=== PATIENT | female | born 1965 | race Caucasian/White ===

== ENCOUNTER → 2021-05-08 13:34 | Outpatient (CLI) | payer BC, SELFPAY ==
[2021-05-08 13:40] LABS: Basophils # 0.1 K/mm3 (0-0.2); Basophils % 1.7 % (0.1-2.0); Eosinophils # 0.2 K/mm3 (0.0-0.4); Eosinophils % 2.8 % (0.1-12.0); Hematocrit 43.3 % (37.0-47.0); Hemoglobin 13.9 g/dL (12.2-16.2); Lymphocytes % 12.2 % (10-50); Mean Corpuscular HGB Conc 32.2 g/dL (31.8-35.4); Mean Corpuscular Hemoglobin 29.8 pg (27.0-31.2); Mean Corpuscular Volume 92.5 fl (81-99); Mean Platelet Volume 9.1 fl (7.4-10.4); Monocytes # 0.5 K/mm3 (0.1-1.0); Monocytes % 5.4 % (1.7-9.3); Neutrophils # 6.6 K/mm3 (1.8-7.8); Neutrophils % 77.9 % (37.0-80.0); Platelet Count 457 K/mm3 (142-424); Red Blood Count 4.68 M/mm3 (4.20-5.40); Red Cell Distribution Width 14.9 % (11.5-17.5); White Blood Count 8.5 K/mm3 (4.8-10.8)
[2021-05-08 14:41] LABS: Alanine Aminotransferase 26 U/L (12-78); Albumin Level 3.7 g/dl (3.5-5.0); Alkaline Phosphatase 119 U/L (38-126); Anion Gap 8.7 mEq/L (5-15); Aspartate Amino Transferase 33 U/L (14-36); Bilirubin,Total 0.3 mg/dl (0.2-1.3); Blood Urea Nitrogen 24 mg/dl (7-17); Calcium 9.1 mg/dl (8.4-10.2); Carbon Dioxide 31 mmol/L (22.0-30.0); Chloride 103 mmol/L (98-107); Chol/HDL Ratio 4.4 (1-3.5); Cholesterol 206 mg/dl (140-200); Estimated Glomerular Filt Rate 75 ml/min (>60); GFR (African American) 90 ML/MIN (>60); Globulin 3.7 g/dL (1.3-3.2); Glucose 107 mg/dl (74-100); HDL Cholesterol 47 mg/dl (40-60); Potassium 4.7 mmoL/L (3.5-5.1); Sodium 138 mmol/L (136-145); Total Protein,Serum 7.4 g/dl (6.3-8.2); Triglycerides 125 mg/dl (30-150); VLDL Cholesterol 25 mg/dL (0-40)
[2021-05-08 14:52] LABS: Direct LDL Cholesterol 131.55 mg/dL (100-129)
[2021-05-08 14:59] LABS: T4 (Thyroxine) 5.8 ug/dl (5.53-11.0)
== END ==
PROVIDERS: Visit Provider Family Medicine
DX: E03.9 Hypothyroidism, unspecified (principal)
CPT/HCPCS: 80053; 80061; 84436; 84443; 85025

== ENCOUNTER → 2022-10-16 14:39 | Outpatient (CLI) | payer BC, SELFPAY ==
[2022-10-16 13:39] LABS: Basophils # 0.1 K/mm3 (0-0.2); Basophils % 0.8 % (0.1-2.0); Eosinophils # 0.3 K/mm3 (0.0-0.4); Eosinophils % 3.2 % (0.1-12.0); Hematocrit 41.7 % (37.0-47.0); Hemoglobin 14.1 g/dL (12.2-16.2); Lymphocytes # 1.3 K/mm3 (0.7-4.5); Lymphocytes % 14.5 % (10-50); Mean Corpuscular HGB Conc 33.8 g/dL (31.8-35.4); Mean Corpuscular Volume 85.8 fl (81-99); Mean Platelet Volume 8.7 fl (7.4-10.4); Monocytes # 0.6 K/mm3 (0.1-1.0); Monocytes % 6.4 % (1.7-9.3); Neutrophils # 6.6 K/mm3 (1.8-7.8); Neutrophils % 75.2 % (37.0-80.0); Platelet Count 488 K/mm3 (142-424); Red Blood Count 4.86 M/mm3 (4.20-5.40); Red Cell Distribution Width 13.9 % (11.5-17.5); White Blood Count 8.7 K/mm3 (4.8-10.8)
[2022-10-16 13:46] LABS: Alanine Aminotransferase 25 U/L (12-78); Albumin Level 3.6 g/dl (3.5-5.0); Albumin/Globulin Ratio 1.1 (1.1-1.8); Alkaline Phosphatase 139 U/L (38-126); Anion Gap 12.4 mEq/L (5-15); Aspartate Amino Transferase 27 U/L (14-36); Bilirubin,Total 0.5 mg/dl (0.2-1.3); Blood Urea Nitrogen 22 mg/dl (7-17); Calcium 8.7 mg/dl (8.4-10.2); Carbon Dioxide 29 mmol/L (22.0-30.0); Chloride 98 mmol/L (98-107); Chol/HDL Ratio 4.5 (1-3.5); Cholesterol 184 mg/dl (140-200); Estimated Glomerular Filt Rate 58 ml/min (>60); GFR (African American) 70 ML/MIN (>60); Globulin 3.4 g/dL (1.3-3.2); Glucose 101 mg/dl (74-100); HDL Cholesterol 41 mg/dl (40-60); Potassium 4.4 mmoL/L (3.5-5.1); Sodium 135 mmol/L (136-145); Triglycerides 123 mg/dl (30-150); VLDL Cholesterol 25 mg/dL (0-40)
[2022-10-16 13:57] LABS: Direct LDL Cholesterol 123.09 mg/dL (100-129)
[2022-10-16 14:17] LABS: Thyroid Stimulating Hormone 0.51 uIU/mL (0.465-4.68)
== END ==
PROVIDERS: PCP Family Medicine; Visit Provider Family Medicine
DX: E03.9 Hypothyroidism, unspecified (principal); I10 Essential (primary) hypertension; E66.01 Morbid (severe) obesity due to excess calories; Z68.43 Body mass index [BMI] 50.0-59.9, adult
CPT/HCPCS: 80053; 80061; 84443; 85025

== ENCOUNTER → 2022-12-02 12:54 | Outpatient (CLI) | payer BC, SELFPAY | PROVIDERS: PCP Family Medicine; Visit Provider Family Medicine | DX: G47.33 Obstructive sleep apnea (adult) (pediatric) (principal); R06.83 Snoring | CPT/HCPCS: G0399 ==

== ENCOUNTER → 2023-04-02 23:23 | Outpatient (CLI) | payer BC, SELFPAY ==
[2023-04-02 19:25] LABS: Basophils # 0.1 K/mm3 (0-0.2); Basophils % 0.7 % (0.1-2.0); Eosinophils # 0.1 K/mm3 (0.0-0.4); Hematocrit 43.3 % (37.0-47.0); Hemoglobin 13.7 g/dL (12.2-16.2); Lymphocytes # 2.4 K/mm3 (0.7-4.5); Lymphocytes % 21.8 % (10-50); Mean Corpuscular HGB Conc 31.7 g/dL (31.8-35.4); Mean Corpuscular Hemoglobin 27.2 pg (27.0-31.2); Mean Corpuscular Volume 85.7 fl (81-99); Mean Platelet Volume 9.1 fl (7.4-10.4); Monocytes # 0.7 K/mm3 (0.1-1.0); Monocytes % 6.5 % (1.7-9.3); Neutrophils # 7.8 K/mm3 (1.8-7.8); Platelet Count 441 K/mm3 (142-424); Red Blood Count 5.05 M/mm3 (4.20-5.40); Red Cell Distribution Width 13.6 % (11.5-17.5); White Blood Count 11.1 K/mm3 (4.8-10.8)
[2023-04-02 19:36] LABS: Alanine Aminotransferase 24 U/L (12-78); Albumin Level 3.7 g/dl (3.5-5.0); Alkaline Phosphatase 127 U/L (38-126); Anion Gap 13.6 mEq/L (5-15); Aspartate Amino Transferase 26 U/L (14-36); Bilirubin,Total 0.3 mg/dl (0.2-1.3); Blood Urea Nitrogen 33 mg/dl (7-17); Carbon Dioxide 30 mmol/L (22.0-30.0); Chloride 101 mmol/L (98-107); Chol/HDL Ratio 4.8 (1-3.5); Cholesterol 192 mg/dl (140-200); Estimated Glomerular Filt Rate 65 ml/min (>60); GFR (African American) 78 ML/MIN (>60); Globulin 3.6 g/dL (1.3-3.2); Glucose 93 mg/dl (74-100); HDL Cholesterol 40 mg/dl (40-60); Potassium 3.6 mmoL/L (3.5-5.1); Sodium 141 mmol/L (136-145); Total Protein,Serum 7.3 g/dl (6.3-8.2); Triglycerides 113 mg/dl (30-150); VLDL Cholesterol 23 mg/dL (0-40)
[2023-04-02 20:06] LABS: Thyroid Stimulating Hormone 0.02 uIU/mL (0.465-4.68)
[2023-04-02 20:33] LABS: Hemoglobin A1C 5.5 % (4.0-6.0)
== END ==
PROVIDERS: PCP Family Medicine; Visit Provider Family Medicine
DX: I10 Essential (primary) hypertension (principal); E66.9 Obesity, unspecified; Z68.42 Body mass index [BMI] 45.0-49.9, adult; E03.9 Hypothyroidism, unspecified; F32.A Depression, unspecified
CPT/HCPCS: 80053; 80061; 83036; 84443; 85025

== ENCOUNTER → 2023-05-20 11:43 | Outpatient (CLI) | payer BC, SELFPAY ==
[2023-05-20 19:53] LABS: Thyroid Stimulating Hormone 0.38 uIU/mL (0.465-4.68)
[2023-05-20 20:28] LABS: Free T4 (Free Thyroxine) 1.97 ng/dl (0.78-2.19)
== END ==
PROVIDERS: PCP Family Medicine; Visit Provider Family Medicine
DX: E03.9 Hypothyroidism, unspecified (principal)
CPT/HCPCS: 84439; 84443

== ENCOUNTER → 2023-07-01 11:30 | Outpatient (CLI) | payer BC, SELFPAY ==
--- NOTE | 2023-07-01 12:14 | XR_ITS ---
FINAL REPORT TECHNIQUE: Chest PA & Lateral CLINICAL HISTORY: OBESITY,HTN COMPARISON: None FINDINGS: 2 views of the chest were performed. The heart size is normal. The mediastinum is within normal limits. There is no acute cardiopulmonary process. There are no pleural effusions. There is no pneumothorax. The bony thorax appears intact. IMPRESSION: No acute cardiopulmonary process. Reviewed, Interpreted and Dictated by Gabriele Mora MD Transcribed by Justine Cespedes Authenticated and . [facility]
[2023-07-01 12:28] LABS: Basophils # 0.1 K/mm3 (0-0.2); Basophils % 0.7 % (0.1-2.0); Eosinophils # 0.2 K/mm3 (0.0-0.4); Eosinophils % 2.6 % (0.1-12.0); Hemoglobin 13.8 g/dL (12.2-16.2); Lymphocytes # 1.6 K/mm3 (0.7-4.5); Lymphocytes % 19.7 % (10-50); Mean Corpuscular HGB Conc 33.5 g/dL (31.8-35.4); Mean Corpuscular Hemoglobin 28.6 pg (27.0-31.2); Mean Corpuscular Volume 85.3 fl (81-99); Mean Platelet Volume 7.4 fl (7.4-10.4); Monocytes # 0.4 K/mm3 (0.1-1.0); Monocytes % 5.5 % (1.7-9.3); Neutrophils # 5.7 K/mm3 (1.8-7.8); Neutrophils % 71.4 % (37.0-80.0); Platelet Count 367 K/mm3 (142-424); Red Blood Count 4.81 M/mm3 (4.20-5.40); Red Cell Distribution Width 14.3 % (11.5-17.5)
[2023-07-01 12:52] LABS: Alanine Aminotransferase 21 U/L (12-78); Albumin Level 3.8 g/dl (3.5-5.0); Alkaline Phosphatase 124 U/L (38-126); Anion Gap 11.1 mEq/L (5-15); Aspartate Amino Transferase 27 U/L (14-36); Bilirubin,Total 0.6 mg/dl (0.2-1.3); Blood Urea Nitrogen 21 mg/dl (7-17); Carbon Dioxide 28 mmol/L (22.0-30.0); Chloride 101 mmol/L (98-107); Chol/HDL Ratio 4.3 (1-3.5); Cholesterol 205 mg/dl (140-200); Estimated Glomerular Filt Rate 87 ml/min (>60); GFR (African American) 105 ML/MIN (>60); Globulin 3.7 g/dL (1.3-3.2); Glucose 94 mg/dl (74-100); HDL Cholesterol 48 mg/dl (40-60); Potassium 4.1 mmoL/L (3.5-5.1); Sodium 136 mmol/L (136-145); Total Protein,Serum 7.5 g/dl (6.3-8.2); Triglycerides 90 mg/dl (30-150); VLDL Cholesterol 18 mg/dL (0-40)
[2023-07-01 13:03] LABS: Direct LDL Cholesterol 123.11 mg/dL (100-129)
[2023-07-01 13:04] LABS: Intact Parathyroid Hormone 50.6 pg/mL (7.5-53.5)
[2023-07-01 13:08] LABS: Free T4 (Free Thyroxine) 1.79 ng/dl (0.78-2.19)
[2023-07-01 13:09] LABS: 25-OH Vitamin D, Total 15.4 ng/mL (30-100)
[2023-07-01 13:23] LABS: Thyroid Stimulating Hormone 0.67 uIU/mL (0.465-4.68)
[2023-07-01 13:52] LABS: Hemoglobin A1C 5.3 % (4.0-6.0)
[2023-07-01 14:03] LABS: Folate 5.11 ng/mL
[2023-07-01 14:21] LABS: Iron 60 ug/dL (37-170)
[2023-07-01 14:37] LABS: Total Iron Binding Capacity 306 ug/dL (265-497)
[2023-07-01 15:00] LABS: Ferritin 47.9 ng/ml (11.1-264)
[2023-07-05 13:10] LABS: Vitamin B1 81.5 nmol/L (66.5-200.0)
[2023-07-07 01:08] LABS: Vitamin E Alpha Tocopherol 11.5 mg/L (7.0-25.1); Vitamin E Gamma Tocopherol 2.8 mg/L (0.5-5.5)
[2023-07-07 02:09] LABS: Vitamin A 27.4 ug/dL (20.1-62.0)
[2023-07-07 20:49] LABS: Methylmalonic Acid 194 nmol/L (0-378)
== END ==
LOC: LAB 11:33
PROVIDERS: PCP Family Medicine; Visit Provider Physician Assistant
DX: E66.9 Obesity, unspecified (principal); Z68.42 Body mass index [BMI] 45.0-49.9, adult; E55.9 Vitamin D deficiency, unspecified; Z79.899 Other long term (current) drug therapy
CPT/HCPCS: 36415; 71046; 80053; 80061; 82306; 82728; 82746; 83036; 83540; 83550; 83921; 83970; 84425; 84439; 84443; 84446; 84590; 85025

== ENCOUNTER 2023-07-29 07:01 | Outpatient (CLI) | payer BC, SELFPAY ==
[2023-07-29] VITALS (7 sets, daily range): BP systolic 120–170; BP diastolic 68–97; PULSE 54–68; RESP 16–18; TEMP 36.1; O2SAT 92–97; BMI 48.2
--- NOTE | 2023-07-29 07:08 | CT_ITS ---
APPROVED REPORT Wastewater Technician: CLINICAL INDICATION Chest Pain TECHNIQUE Image Acquisition: A 128 slice MDCT scanner (Limeadea View) was used for data acquisition. A noncontrast coronary calcium scan was performed. A CT attenuation threshold of 130 Hounsfield units (HU) was used for the detection of calcium in contiguous voxels of 1 sq mm in area to be counted as individual lesions. Bolus tracking in the ascending aorta with a threshold of 180 HU was performed. Immediately afterwards, ECG synchronized cardiac CT was then performed from the cardiac base to apex using retrospective gating with ECG tube current modulation. A total of 85 mL of Isovue 370 mg/mL contrast medium was administered at 5 mL/sec followed by a saline flush using a biphasic injection protocol. A tube voltage of 120 KVp was used. The patient received the following medications prior to the cardiac CT. 25 mg of oral metoprolol 0.8 mg of sublingual nitroglycerin The average heart rate at the time of acquisition was 58 bpm and regular. Image Reconstruction Transaxial images were reconstructed at 0.67 mm slide thickness. Data was reviewed interactively on an advanced workstation capable of 2 and 3-dimensional displays in all conventional reconstruction formats, including multiplanar reformations, maximum intensity projections, curved multiplanar reformations, and volume rendered reconstructions. When applicable, selected routine images describing the relevant coronary anatomy and pathology were saved and sent to PACS. Complications None Technical Quality Overall image quality was suboptimal. Coronary artery opacification was suboptimal. Total DLP (Dose-Length Product) is 1338.5 mGy-cm. The reported value represents the total of one or more individual components during the CT acquisition of this date and at this time, and as such, the same value may appear in more than one CT report depending on the interpreting/reporting physicians. COMPARISON None FINDINGS CT Coronary Calcium Scoring LMA (Left Main Artery) = 0 LAD (Left Anterior Descending) = 182 LCX (Left Coronary Circumflex) = 18 RCA (Right Coronary Artery) = 85 Total Calcium Score = 285 using the AJ-130 method. The observed calcium score of 285 is at 98th percentile for subjects of the same age, sex, and race/ethnicity. The interpretation of the calcium heart score is based on the following continuum*: 0 = no calcified plaque detected (risk of coronary artery disease is very low ??? less than 5%) 1-10 = calcium detected in extremely minimal levels (risk of coronary diseases is still low ??? less than 10%) 11-100 = mild levels of plaque detected with certainty (mild or minimal narrowing of heart arteries is likely) 101-400 = definite,at least moderate levels of plaque detected (relatively high risk of a heart attack within 3-5 years) >401-999 = extensive levels of plaque detected (high risk of heart attack, high levels of vascular disease are present, high likelihood of at least one significant coronary narrowing) *The calcium heart score quantifies the burden of coronary calcification/plaque in the coronary arteries. The calcium heart score is not able to evaluate the presence or burden of non-calcified (i.e. soft) plaque. There is no identifiable calcification in the aortic valve, mitral annulus or mitral valve, pericardium, or myocardium. Coronary CT Angiography The coronary arterial system is right dominant. Quantitative Stenosis Grading: Left Main (LM): The left main originates normally from the left sinus of Valsalva. The LM bifurcates into the left anterior descending artery and left circumflex artery. There is calcification in the distal LM at the bifurcation. The severity of stenosis is difficult to estimate due to technically difficult study, but is likely significant up to 70-90% luminal stenosis. Left Anterior Descending (LAD) and Diagonal Branches: The LAD gives off 2 diagonal branches. There is mixed calcified/non-calcified plaque in the proximal LAD and ostial first diagonal branch, with up to 70-90% luminal stenosis. There is no evidence of LAD bridge. Ramus-intermedius (RI): The RI is patent. Left Circumflex (LCX) and Obtuse Marginals (OM): The LCX gives off 1 Obtuse Marginal (OM) branch. There is calcification in the proximal LCX but without any significant luminal stenosis. Distally, there is possibly a significant 50-70% non-calcified plaque present, but this is difficult to estimate due to poor visualization of the distal vessel. Right Coronary Artery (RCA): The RCA originates normally from the right sinus of Valsalva. The RCA gives off a posterior descending artery (PDA) and posterolateral (PL) branches. There are multiple mixed calcified/non-calcified plaques in the proximal RCA, with up to 50-70% luminal stenosis. Distally, the RCA is patent without any additional atherosclerosis. Non-Coronary Cardiac Findings: Analysis of the left ventricular (LV) structure and function was performed after 3-D reconstruction of the LV from axial images, with user-corrected automatic contouring for assessment of LV volumes and user-defined reconstruction from oblique planes for measurement of 3-D cardiac structure and function. LVEDV: 243 mL LVESV: 112 mL SV: 131 mL LVEF: 53.9 % -The left ventricle is dilated with normal LV systolic function. -There is incomplete opacification of the left atrial appendage, which may represent filling defect vs. poor distal contrast flow. Two right pulmonary veins and two left pulmonary veins drain normally into the left atrium. -No pericardial thickening or calcification. -Central and branch pulmonary arteries in the [id number] are unremarkable. -Thoracic aorta within the visualized thoracic aortic-branches in the [id number] is unremarkable. Extracardiac Structures No significant extra-cardiac findings. IMPRESSION -Technically difficult study due to suboptimal quality. -Severe coronary calcification with an Agatston score = 285 using the AJ-130 method. -The observed calcium score of 285 is at 98th percentile for subjects of the same age, sex, and race/ethnicity. -There is possibly evidence of significant multivessel flow-limiting atherosclerosis of the coronary arteries, involving the distal left main artery (as noted above). Accurate estimation of the severity of atherosclerosis is difficult due to technically difficult study. -CAD-RADS 4B. Management recommendations per ACC/AHA guidelines*, as clinically appropriate. - Incomplete opacification of the left atrial appendage, which may represent filling defect vs. poor distal contrast flow. *Recommendations: CAD RADS 0: Reassurance. Consider non-atherosclerotic causes of chest pain. CAD RADS 1: Consider non-atherosclerotic causes of chest pain. Consider preventive therapy and risk factor modification. CAD RADS 2: Consider non-atherosclerotic causes of chest pain. Consider preventive therapy and risk factor modification, particularly for patients with nonobstructive plaque in multiple segments. CAD RADS 3: Consider further functional testing. Consider symptom-guided anti-ischemic and preventive pharmacotherapy as well as risk factor modification per published guideline statements. CAD RADS 4A: Consider further functional testing or invasive coronary angiography with revascularization per published guideline statements. Consider symptom-guided anti-ischemic and preventive pharmacotherapy as well as risk factor modification per published guideline statements. CAD RADS 4B: Invasive coronary angiography recommended with revascularization per published guideline statements. Consider symptom-guided anti-ischemic and preventive pharmacotherapy as well as risk factor modification per published guideline statements. CAD RADS 5: Consider invasive angiography and/or viability assessment with revascularization per published guideline statements. Consider symptom-guided anti-ischemic and preventive pharmacotherapy as well as risk factor modification per published guideline statements. CRITICAL RESULT None COMMUNICATION Per this written report The coronary and cardiac findings of this CCTA were reviewed, reported, and signed by Sergey Green MD (Drywall Stripper) Conclusion Electronically signed by : Rani Green MD 08/03/2023 16:24:54
[2023-07-29] MEDS: METOPROLOL TARTRATE 25MG TABLET 25 MG PO (07:37)
[2023-07-29] MEDS: NITROGLYCERIN 0.4MG SL TABLET 0.800000000000000044 MG SL (08:02)
[2023-07-29] MEDS: IOPAMIDOL-370 (76%);100ML BOTTLE 85 ML IV (08:53)
[2023-07-29] MEDS: 0.9 % SODIUM CHLORIDE 50 ML VIAL IV (08:54)
[2023-07-29] MEDS: SODIUM CHLORIDE 0.9% 10ML SYR (RAD ONLY) 10 ML IV (08:54)
== END 2023-07-29 08:47 | disposition home or self-care (01) ==
LOC: RAD 07:02
PROVIDERS: PCP Family Medicine; Visit Provider Physician Assistant
DX: R07.89 Other chest pain (principal); Z01.818 Encounter for other preprocedural examination; I10 Essential (primary) hypertension; G47.33 Obstructive sleep apnea (adult) (pediatric); E66.9 Obesity, unspecified; Z68.42 Body mass index [BMI] 45.0-49.9, adult
CPT/HCPCS: 75571; 75574; Q9967

== ENCOUNTER 2023-12-16 06:51 | Outpatient (CLI) | payer BC, SELFPAY ==
--- NOTE | 2023-12-16 | CA_ITS ---
APPROVED REPORT Exam: Pharmacologic Technologist: Patricia Grant, Ht: 5 ft 6 in Wt: 286 lbs BSA: 2.33 m2 HR: 60 bpm BP: 145/67 mmHg Rhythm: NSR Indications: PreOp, Abn CCTA Medical History Medications: Levothyroxine,,,,, Metoprolol,,,,, LoraTADINE,,,,, Losartan-HCTZ,,,,, BuPROPION HCI,,,,, Venlafaxine eR,,,,, Stress Test Details Test: LEXISCAN Reason for pharmacologic stress test: physical limitation. HR Resting HR: 62 bpm Max Heart Rate (APMHR): 164 bpm Max HR Achieved: 81 bpm Target HR (85% APMHR): 139 bpm % of APMHR: 49 Recovery HR: 66 bpm BP Resting BP: 145.0/67.0 mmHg Max BP: 145.0/67.0 mmHg Recovery BP: 126.0/58.0 mmHg ECG Resting ECG: NSR, normal Clinical Exercise duration: 04:01 min Highest Stage Achieved: Exercise capacity: 1.0 METs Stress ECG Conclusion Symptoms: mild head discomfort. No CP. Arrhythmias/Ectopy: None ST-T Changes: No significant changes. Conclusion: Unremarkable Lexiscan stress. Myoview images reported separately. Test Summary REST . . . . . . . Resting REST 03:47 . . 62 . 145/ 67 . . Stage 1 01:00 . . 77 . . . . Stage 2 01:00 . . 73 . . . . Stage 3 01:00 . . 73 . 141/ 65 . . Stage 4 01:00 . . 68 . 130/ 62 . . Stage 4 01:01 . . 68 . 130/ 62 . Stop exercise at 04:01 RECOVERY 01:00 . . 69 . 124/ 59 . . RECOVERY 02:00 . . 70 . 124/ 59 . . RECOVERY 03:00 . . 68 . 124/ 59 . . RECOVERY 03:19 . . 66 . 126/ 58 . . Electronically signed by : Rani Green MD 12/16/2023 13:43:54
--- NOTE | 2023-12-16 07:26 | NM_ITS ---
APPROVED REPORT Exam: Nuclear Stress Test Indication: abnormal coronary Patient Location: Outpatient Stress Tech: Patricia Chung [place] Tech:BETO Valladares RT(R)(N) Ht: 5 ft 6 in Wt: 250 lbs Bra Size: 38c HR: 62 bpm BP: 145/67 mmHg BSA: 2.20 m2 TID: 1.50 BMI: 40.3 History: abnormal coronary Procedure: Patient received 0.4 mg of intravenous Lexiscan, resting heart rate 62 bpm, resting blood pressure 145/67 mmHg, with Lexiscan maximum heart rate achieved was 81 bpm which is 85 % of the maximum predicted heart rate and blood pressure was 145/67 mmHg. Cardiac Stress and Resting SPECT Images: Cardiac Stress and Resting SPECT images were obtained using technetium 99m Myoview 30.8 mCi stress and 10.16 mCi at rest. Resting and stress imaging in supine and prone positions demonstrate no evidence of fixed or reversible perfusion defects. There is marked increase in transient ischemic dilatation ratio (TID 1.50), suggestive of possible multivessel disease or balanced ischemia. Gated imaging demonstrates normal global and regional LV systolic function. LVEF is calculated at 55%. Conclusion: No evidence of fixed or reversible perfusion defects. Marked increase in transient ischemic dilatation ratio (TID 1.50), suggestive of possible multivessel disease or balanced ischemia. Gated imaging demonstrates normal global and regional LV systolic function. LVEF is calculated at 55%. Electronically signed by : Rani Green MD 12/16/2023 13:45:06
[2023-12-16] MEDS: REGADENOSON 0.4MG/5ML SYRINGE 0.400000000000000022 MG IV (09:05)
[2023-12-16] MEDS: SODIUM CHLORIDE 0.9% 10ML SYR (RAD ONLY) 10 ML IV ×2 (09:06)
[2023-12-16] MEDS: ISOTOPE MYOVIEW (PER STUDY) 1 DOSE IV (09:06)
== END 2023-12-16 23:59 | disposition home or self-care (01) ==
LOC: RAD 06:52
PROVIDERS: PCP Family Medicine; Visit Provider Nurse Practitioner
DX: Z01.818 Encounter for other preprocedural examination (principal); R06.00 Dyspnea, unspecified; R93.1 Abnormal findings on diagnostic imaging of heart and coronary circulation
CPT/HCPCS: 78452; 93017; 93018; A9502; J2785

== ENCOUNTER 2023-12-24 07:37 | Day surgery (SDC) | payer BC, SELFPAY ==
[2023-12-24] VITALS (13 sets, daily range): BP systolic 93–146; BP diastolic 43–72; PULSE 56–70; RESP 16–20; TEMP 36.6; O2SAT 95–100; BMI 46.1
--- NOTE | 2023-12-24 07:10 | IR_ITS ---
APPROVED REPORT Patient Location: Outpatient Mds Rn: BETO Lopez RT (R) PROCEDURES Left heart catheterization Left ventriculogram Selective coronary angiogram Drug-eluting stent deployment to the proximal ramus intermedius Intravascular ultrasound to the LAD Drug-eluting stent deployment to the ostial proximal LAD INDICATION Abnormal CCTA, Coronary artery disease, MLA 3.9 mm??? in the ostial proximal LAD, Preoperative evaluation Informed consent was obtained prior to the procedure. COMPLICATIONS NONE Estimated Blood Loss: LESS THAN 10 ML TECHNIQUE One percent lidocaine used to anesthetize the right anterior aspect of the wrist. The right radial artery was accessed via the Seldinger technique. A 6 Syriac sheath was placed in the right radial artery. 2.5 mg of Verapamil, 800 mcg of nitroglycerin, 1mg Lidocaine and 5000 U Heparin were given through the arterial sheath. The papa catheter was also used to perform left heart catheterization, left ventriculogram and selective coronary angiogram. At the end of the diagnostic angiogram therapeutic heparin was administered giving a therapeutic ACT and the guide catheters placed in left main artery followed by Choice PT extra-support wire placed on the ramus intermedius. A 3.5 x 8 mm [place] frontier stent was deployed at 20 gama reducing the severe stenosis to 0%. There is angiographic ambiguity in the left anterior descending artery which was concerning given the abnormal CCTA. An additional Choice PT extra-support wire was placed into the LAD and intravascular ultrasound probe was advanced which demonstrated atheromatous plaque exceeding 70% with an MLA of 3.9 mm???. Because of this a 3 mm x 38 mm [place] frontier stent was deployed at 20 gama in the ostial proximal LAD. Following this intravascular sound probe was reinserted which demonstrated excellent expansion and excellent sizing of the ostial proximal LAD stent. At the end the procedure the apparatus was removed the sheath was removed and hemostasis was achieved using TR banding patient was transferred to the postop putting in stable condition ANGIOGRAPHIC RESULTS The left main artery Mild 10% plaque The left anterior descending artery Has an ostial proximal 70% stenosis as confirmed by IVUS with mild luminal regularities distally The circumflex artery Is dominant gives rise to a large ramus intermedius which has a proximal eccentric 70 to 80% stenosis. There is an additional branch from the proximal ramus intermedius which has an ostial 70 to 80% stenosis and is 2.5 mm in diameter. The circumflex artery itself has proximal 30% in the mid vessel 30 to 40% stenosis The right coronary artery Nondominant with diffuse 20 and 30% stenosis The SAL ventriculogram reveals Normal 65% The left ventricular end-diastolic pressure Severely elevated at 30 mmHg IMPRESSION Severe proximal LAD disease as described above with successful stenting reducing the lesion to 0% with 1 drug-eluting stent Severe stenosis in a large proximal ramus intermedius with successful stenting reducing the lesion to 0% with 1 drug-eluting stent Persistent 2.5 mm branch off the ramus intermedius which has an ostial 80% stenosis which is best managed medically Normal ejection fraction Elevated LVEDP consistent with HFpEF PLAN 1. Effient and aspirin 2. LDL less than 55 to be 2 that high intensity statin 3. Avoidance of tobacco products 4. Risk factor modification 5. Cardiac rehabilitation 6. Elective gastric sleeve/bypass surgery should be postponed given fresh drug-eluting stents Electronically signed by : Prashant Smith MD 12/24/2023 10:47:29
[2023-12-24 08:23] LABS: Basophils # 0.1 K/mm3 (0-0.2); Basophils % 1.4 % (0.1-2.0); Eosinophils # 0.3 K/mm3 (0.0-0.4); Eosinophils % 3.6 % (0.1-12.0); Hemoglobin 15.1 g/dL (12.2-16.2); Lymphocytes # 1.4 K/mm3 (0.7-4.5); Lymphocytes % 16.1 % (10-50); Mean Corpuscular HGB Conc 33.6 g/dL (31.8-35.4); Mean Corpuscular Volume 86.1 fl (81-99); Mean Platelet Volume 7.2 fl (7.4-10.4); Monocytes # 0.5 K/mm3 (0.1-1.0); Monocytes % 6.2 % (1.7-9.3); Neutrophils # 6.2 K/mm3 (1.8-7.8); Neutrophils % 72.6 % (37.0-80.0); Platelet Count 408 K/mm3 (142-424); Red Blood Count 5.22 M/mm3 (4.20-5.40); Red Cell Distribution Width 14.1 % (11.5-17.5); White Blood Count 8.5 K/mm3 (4.8-10.8)
[2023-12-24 08:52] LABS: Anion Gap 13.7 mEq/L (5-15); Blood Urea Nitrogen 19 mg/dl (7-17); Calcium 9.4 mg/dl (8.4-10.2); Carbon Dioxide 32 mmol/L (22.0-30.0); Chloride 98 mmol/L (98-107); Creatinine Clearance Estimated 65 mL/min (50-200); Estimated Glomerular Filt Rate 65 ml/min (>60); GFR (African American) 78 ML/MIN (>60); Glucose 107 mg/dl (74-100); Potassium 3.7 mmoL/L (3.5-5.1); Sodium 140 mmol/L (136-145)
[2023-12-24] MEDS: 0.9 % SODIUM CHLORIDE 500 ML 25 ML IV (09:58)
[2023-12-24] MEDS: HEPARIN 1,000 UNITS/500ML NS (CATH LAB) 3000 UNIT IV (09:58)
[2023-12-24] MEDS: diphenhydrAMINE 50MG/ML VIAL 50 MG IV (09:58)
[2023-12-24] MEDS: HEPARIN 1,000 UNITS/ML 10ML VIAL (CATH LAB) 10000 UNIT IV (09:58)
[2023-12-24] MEDS: LIDOCAINE 1% 10ML MDV 20 ML IJ (09:58)
[2023-12-24] MEDS: VERAPAMIL 2.5MG/ML 2ML VIAL 2.5 MG IV (09:58)
[2023-12-24] MEDS: NITROGLYCERIN 800MCG/8ML SYR (CATH LAB) 800 MCG IA (09:59)
[2023-12-24] MEDS: FENTANYL 100MCG/2ML VIAL 50 MCG IV (10:46)
[2023-12-24] MEDS: MIDAZOLAM HCL 1MG/1ML 5ML VIAL 1 MG IV (10:47)
--- NOTE | 2023-12-24 11:00 | SUR.PHASEII ---
Notified patient family of status post cath and d/c time
[2023-12-24] MEDS: HYDRALAZINE 20MG/ML VIAL 20 MG IV (11:17)
--- NOTE | 2023-12-24 11:20 | SUR.PHASEII ---
Report given to Mis Youssef in outpatient surgery
[2023-12-24] MEDS: IOPAMIDOL-370 (76%);100ML BOTTLE 150 ML IV (11:38)
[2023-12-24 11:41] LABS: CATHL Activated Clotting Time 320 SEC (74-125)
--- NOTE | 2023-12-24 11:43 | SUR.PHASEII ---
ordered pt a lunch tray at this time. vss. call light in reach
== END 2023-12-24 14:05 | disposition home or self-care (01) ==
PROVIDERS: PCP Family Medicine; Visit Provider Internal Medicine
DX: R93.1 Abnormal findings on diagnostic imaging of heart and coronary circulation (principal); E03.9 Hypothyroidism, unspecified; I11.0 Hypertensive heart disease with heart failure; E66.9 Obesity, unspecified; G47.33 Obstructive sleep apnea (adult) (pediatric); Z68.42 Body mass index [BMI] 45.0-49.9, adult; Z79.899 Other long term (current) drug therapy; I25.10 Atherosclerotic heart disease of native coronary artery without angina pectoris; I50.30 Unspecified diastolic (congestive) heart failure
CPT/HCPCS: 80048; 85025; 85347; 92928; 92978; 93458; 99152; 99153; C1725; C1760; C1769; C1874; C9600; J1644; Q9967

== ENCOUNTER 2024-05-18 18:20 | Outpatient (CLI) | payer BC, SELFPAY ==
[2024-05-18 18:05] LABS: Basophils # 0.1 K/mm3 (0-0.2); Eosinophils # 0.2 K/mm3 (0.0-0.4); Eosinophils % 2.6 % (0.1-12.0); Hematocrit 45.4 % (37.0-47.0); Hemoglobin 14.9 g/dL (12.2-16.2); Lymphocytes # 1.1 K/mm3 (0.7-4.5); Lymphocytes % 14.3 % (10-50); Mean Corpuscular HGB Conc 32.9 g/dL (31.8-35.4); Mean Corpuscular Hemoglobin 28.3 pg (27.0-31.2); Mean Platelet Volume 7.7 fl (7.4-10.4); Monocytes # 0.6 K/mm3 (0.1-1.0); Monocytes % 8.2 % (1.7-9.3); Neutrophils # 5.7 K/mm3 (1.8-7.8); Neutrophils % 73.9 % (37.0-80.0); Platelet Count 371 K/mm3 (142-424); Red Blood Count 5.28 M/mm3 (4.20-5.40); Red Cell Distribution Width 13.8 % (11.5-17.5); White Blood Count 7.7 K/mm3 (4.8-10.8)
[2024-05-18 18:20] LABS: Albumin Level 3.8 g/dl (3.5-5.0); Chloride 104 mmol/L (98-107)
[2024-05-18 18:21] LABS: Potassium 4.6 mmoL/L (3.5-5.1); Sodium 139 mmol/L (136-145)
[2024-05-18 18:23] LABS: Alanine Aminotransferase 31 U/L (12-78); Anion Gap 11.6 mEq/L (5-15); Aspartate Amino Transferase 30 U/L (14-36); Blood Urea Nitrogen 23 mg/dl (7-17); Carbon Dioxide 28 mmol/L (22.0-30.0); Estimated Glomerular Filt Rate 86 ml/min (>60); GFR (African American) 104 ML/MIN (>60); Globulin 3.7 g/dL (1.3-3.2); Total Protein,Serum 7.5 g/dl (6.3-8.2)
[2024-05-18 18:24] LABS: Alkaline Phosphatase 138 U/L (38-126); Bilirubin,Total 0.6 mg/dl (0.2-1.3); Calcium 9.4 mg/dl (8.4-10.2); Cholesterol 142 mg/dl (140-200); Glucose 103 mg/dl (74-100); HDL Cholesterol 48 mg/dl (40-60); Triglycerides 81 mg/dl (30-150); VLDL Cholesterol 16 mg/dL (0-40)
[2024-05-18 18:36] LABS: Direct LDL Cholesterol 70.56 mg/dL (100-129)
[2024-05-18 18:44] LABS: T4 (Thyroxine) 11.1 ug/dl (5.53-11.0)
[2024-05-18 18:54] LABS: Thyroid Stimulating Hormone 1.21 uIU/mL (0.465-4.68)
== END 2024-05-18 23:59 | disposition home or self-care (01) ==
LOC: LAB.DROPOF 18:20
PROVIDERS: PCP Family Medicine; Visit Provider Family Medicine
DX: E03.9 Hypothyroidism, unspecified (principal); I50.30 Unspecified diastolic (congestive) heart failure
CPT/HCPCS: 80050; 80053; 80061; 84436; 84443; 85025

== ENCOUNTER 2024-12-04 11:20 | Outpatient (CLI) | payer BC, SELFPAY ==
[2024-12-04 20:16] LABS: Alanine Aminotransferase 210 U/L (12-78); Albumin Level 3.6 g/dl (3.5-5.0); Albumin/Globulin Ratio 1.1 (1.1-1.8); Alkaline Phosphatase 139 U/L (38-126); Anion Gap 7.1 mEq/L (5-15); Aspartate Amino Transferase 152 U/L (14-36); Bilirubin,Total 1.1 mg/dl (0.2-1.3); Blood Urea Nitrogen 21 mg/dl (7-17); Carbon Dioxide 29 mmol/L (22.0-30.0); Chloride 106 mmol/L (98-107); Chol/HDL Ratio 2.7 (1-3.5); Cholesterol 114 mg/dl (140-200); Estimated Glomerular Filt Rate 74 ml/min (>60); GFR (African American) 89 ML/MIN (>60); Globulin 3.3 g/dL (1.3-3.2); Glucose 100 mg/dl (74-100); HDL Cholesterol 42 mg/dl (40-60); Potassium 4.1 mmoL/L (3.5-5.1); Sodium 138 mmol/L (136-145); Total Protein,Serum 6.9 g/dl (6.3-8.2); Triglycerides 57 mg/dl (30-150); VLDL Cholesterol 11 mg/dL (0-40)
[2024-12-04 20:25] LABS: Hemoglobin A1C 5.4 % (4.0-6.0)
[2024-12-04 20:27] LABS: Direct LDL Cholesterol 54.69 mg/dL (100-129)
[2024-12-04 20:33] LABS: T4 (Thyroxine) 16.2 ug/dl (5.53-11.0)
[2024-12-04 20:46] LABS: Thyroid Stimulating Hormone 0.69 uIU/mL (0.465-4.68)
== END 2024-12-04 23:59 | disposition home or self-care (01) ==
LOC: LAB.DROPOF 12-05 09:09
PROVIDERS: PCP Family Medicine; Visit Provider Family Medicine
DX: E03.9 Hypothyroidism, unspecified (principal); I10 Essential (primary) hypertension; E11.9 Type 2 diabetes mellitus without complications
CPT/HCPCS: 80053; 80061; 83036; 84436; 84443

== ENCOUNTER 2024-12-12 11:02 | Outpatient (CLI) | payer BC, SELFPAY ==
--- NOTE | 2024-12-12 11:00 | US_ITS ---
FINAL REPORT CLINICAL HISTORY: elevated liver enzymes FINDINGS: Sonographic images of the right upper quadrant were obtained. Exam is suboptimal due to patient body habitus. The pancreas is partially obscured. The liver is fatty infiltrated. An 1.9 cm gallstone is present. There is no evidence of biliary ductal dilatation.The common duct is within normal limits. Limited images of the right kidney are unremarkable. IMPRESSION: Fatty infiltration of the liver. Cholelithiasis. Reviewed, Interpreted and Dictated by Gabriele Mora MD Transcribed by Aura Hu Authenticated and . [facility]
--- OUTSIDE RECORDS SUMMARY | 2024-12-12 11:04 | XMS_ITS | Data Portability ---
Author Organization [facility] & DESTINEY Roy ADMIN Address [address] [place] [address] Assessment Encounter Date Assessment Date Assessment LastModified by Organization Details LastModified Time 05/21/2023 05/21/2023 RDN concludes that pt is a fair candidate for sx at this time. Reservations include reported limited control over eating patterns and reports of overeating. Pt also reports that her brother has brought unhealthy food choices to her house for them to eat in the past and he continues to bring fast food to her. [email or web address] Not available 05/21/2023 11:26:38 06/07/2023 06/07/2023 RDN discussed the importance of gaining control over her eating patterns prior to surgery and continuing diligent effort towards this post-op. Reservations continue to include reported limited control over eating patterns and reports of overeating. Pt also reports that her brother has brought unhealthy food choices to her house for them to eat in the past and he continues to bring fast food to her. [email or web address] Not available 06/07/2023 14:15:59 Plan of Treatment Reminders Order Date Submit Date Provider Last Modified By Organization Details Last Modified Time Details Appointments None recorded. Lab CBC w/ auto diff 2022 023 [facility], [address], [address], [place], [address], 21:52:50 CMP, serum or plasma 2022 023 [email or web address] [facility], [address], [address], [place], [address], 21:52:50 HbA1c (hemoglobin A1c), blood 2022 023 [email or web address] [facility], [address], [address], [place], [address], 21:52:50 iron + TIBC + ferritin, serum 2022 023 [facility], [address], [address], [place], [address], 21:52:51 vitamin D, 25-hydroxy, total, serum 2022 023 [facility], [address], [address], [place], [address], 21:52:51 vitamin A (retinol), serum 2022 023 [email or web address] [facility], [address], [address], [place], [address], 21:52:51 vitamin E, serum 2022 023 [email or web address] [facility], [address], [address], [place], [address], 21:52:51 PTH (parathyroi d hormone), intact, serum or plasma 2022 023 [email or web address] [facility], [address], [address], [place], [address], 21:52:51 lipid panel, serum 2022 023 [email or web address] [facility], [address], [address], [place], [address], 21:52:51 TSH + free T4, serum 2022 023 [email or web address] [facility], [address], [address], [place], [address], 3 21:52:51 folate, serum 2022 023 [email or web address] [facility], [address], [address], [place], [address], 21:52:51 methylmalon ate, QN, serum or plasma 2022 023 [email or web address] [facility], [address], [address], [place], [address], 3 21:52:52 thiamine, QN, blood 2022 023 [email or web address] [facility], [address], [address], [place], [address], 21:52:52 Referral None recorded. Procedures None recorded. Surgeries esophagogas troduodenos copy (SURG) 2022 023 CLARISSA Jacobson MD, [address], [address], [place], [address], 3 09:52:00 Imaging XR, chest, 2 view 2022 023 [email or web address] [facility]), [address], [place], [address], 21:52:40 electrocard iogram, routine ECG, 12 leads min 2022 023 [email or web address] Not available 21:52:40 Medication Orders None recorded. Patient TargetsNo targets recorded. Patient Instructions Encounter Date Encounter Id Patient Instructions Last Modified By Organization Details Last Modified Time 05/21/2023 [id number] 1. Follow meal p pedrito and recommendations for foods to eat in the nutrition appendix of manual. 2. Continue current efforts to switch out sugary foods and drinks for lower sugar/calorie options. Sugar-free propel is fine. 3. Attend visit with virtual ED support group in the next couple of weeks. Plan to continue therapy or counseling post-op to address eating habits and control over eating. Have a discussion about lifestyle changes with support personnel in family/friends and set expectations to avoid future dietary sabotage. Pt voiced understanding. Denied further questions/concerns. RDN will f/up and monitor PRN. [email or web address] Not available 05/21/2023 11:27:24 Pt requested to have a resource provided that does not require for her to speak in a group setting but rather attend a support group that assists in managing eating patterns. Pt requested this resource to be sent via both email and snail mail. This resource was sent today as requested. [email or web address] Not available 05/21/2023 11:28:48 Reason for Referral None Reported. Results Created Date Observation Date Name Description Value Unit Range Abnormal Flag Note LastModifiedBy Organization Detail LastModifiedTime 05/28/2005/29/[address] (H PYLOR I AB QUAL) ari test 20 min NEGATI VE negati ve Not Available [facility] ([facility] [address] [facility], [place], [address], 05/29/2023 07:34:34 05/28/2005/29/[address] (H PYLOR I AB QUAL) ari test 1HR NEGATI VE negati ve Not Available [facility] ([facility]) [address] [facility], [place], [address], 05/29/2023 07:34:34 05/28/2005/29/[address] (H PYLOR I AB QUAL) ari test 3 HR NEGATI VE negati ve Not Available [facility] ([facility]) [address] [facility], [place], [address], 05/29/2023 07:34:34 05/28/2005/29/[address] (H PYLOR I AB QUAL) ari test 24 HR NEGATI VE negati ve Not Available [facility] ([facility]) [address], [place], [address], 05/29/2023 07:34:34 05/28/2005/29/[address] (H PYLOR I AB QUAL) ari test kit lot# [id number] 5 Not Available [facility] ([facility]) [address], [place], [address], 05/29/2023 07:34:34 05/28/2005/29/[address] (H PYLOR I AB QUAL) ari test kit exp date 2023 Not Available [facility] ([facility]) [address], [place], [address], 05/29/2023 07:34:34 Result Notes None recorded. Problems Name Problem SNOMED Code Status Onset Date Resolution Date Notes Provider Name and Address Organization Details Recorded Time Essential hypertension 57780223 Active 2022 MAGAN Andrade [address], [place], [address] , [place] - [facility] - [place] & [place] 3 10:25:55 Obstructive sleep apnea syndrome 15771708 Active 2022 MAGAN Andrade [address], [place], [address] , [place] [facility] [place] & [place] 3 10:25:56 Problem Notes None recorded. Procedures Surgical History Date Name Laterality Status Provider Name and Address Organization Details Recorded Time 05/28 ESOPHAGOGASTRODUODENOSCOPY (SURG) completed Kiley Hand [place] [facility] & [place] 3 09:52:06 05/28 ESOPHAGOGASTRODUODENOSCOPY (SURG) completed MAGAN Andrade [address], [place], [address] , [place] [facility] & [place] 3 11:20:06 colonoscopy completed MAGAN Andrade [address], [place], [address] , [facility] & [place] 3 10:15:57 Imaging Results None recorded. Procedure Notes None recorded. Medical Equipment None Reported. Allergies Allergen ID Allergen Name Allergen Category Reaction Reaction Severity Criticality Documentation Date Start Date Code Code System Note Provider Name and Address Organization Details Recorded Time 71496 Augmentin medicatio n Not available Not available Not available 05/20/2023 69631 2 RxNorm ceph ok MAGAN Andrade [address], [place], [address], [facility] & [place] 3 10:14:14 35063 dextromet horphan / guaifenes in medicatio n Not available Not available Not available 05/20/2023 94188 8 RxNorm Chhaya Middleton [facility], [facility] & [place] 3 09:58:24 Medications Name Sig Start Date Stop Date Status Note LastModified by Organization Details LastModified Time levothyroxi ne 175 mcg tablet TAKE 1 TABLET BY MOUTH DAILY 05/20 completed Not Available Not Available Not Available venlafaxine ER 150 mg capsule,ext ended release 24 hr TAKE 1 CAPSULE BY MOUTH DAILY FOR DEPRESSIO N active Not Available Not Available No t Available levothyroxi ne 150 mcg tablet TAKE 1 TABLET BY MOUTH DAILY active Not Available Not Available No t Available lisinopril 20 mg-hydrochl orothiazide 25 mg tablet TAKE 1 TABLET BY MOUTH DAILY 05/20 completed Not Available Not Available Not Available diclofenac sodium 75 mg tablet,goldy yed release TAKE 1 TABLET BY MOUTH TWICE DAILY active Not Available Not Available No t Available norethindro ne (contracept tej) 0.35 mg tablet TAKE 1 TABLET BY MOUTH DAILY 05/20 completed Not Available Not Available Not Available loratadine 10 mg tablet TAKE 1 TABLET BY MOUTH ONCE DAILY active Not Available Not Available No t Available bupropion HCl XL 150 mg 24 hr tablet, extended release TAKE 1 TABLET BY MOUTH DAILY active Not Available Not Available No t Available metoprolol tartrate 25 mg tablet TAKE 1 TABLET BY MOUTH TWICE DAILY FOR HIGH BLOOD PRESSURE active Not Available Not Available No t Available losartan 100 mg-hydrochl orothiazide 12.5 mg tablet TAKE 1 TABLET BY MOUTH DAILY active Not Available Not Available No t Available Vitals Date Recorded Body height Body mass index (BMI) Body weight Heart rate Body temperature Systolic blood pressure Diastolic blood pressure Provider Name and Address Organization Details Last Updated DateTime 3 167.64 cm 47.5 kg/m2 924575. 16 g 66 /min 96.9 [degF] 163 mm[Hg] 87 mm[Hg] Chhaya Middleton [place] - [facility] - [place] & [place] 3 10:01:12 Social History None recorded. Functional Status Question Answer Note LastModified by Organization D etails LastModified Time What is your level of alcohol consumption? None [email or web address] Information not available 05/20/2023 Mental Status None recorded. Family History Relationship Description Onset Age of this Age Resolved Age Notes LastModified by Organization Details LastModified Time Mother Malignant neoplasm of lung [email or web address] Not available 2022 10:03:33 Medical History Condition Response Anxiety Disorder Y Diabetes N Bleeding Disorder N Hyperthyroidism Y Depression Y Reflux/GERD N Sleep Apnea Y High Cholesterol N Liver Disease N Pulmonary Embolism N Headaches N Deep Vein Thrombosis N Hypertension Y Kidney Disease N Gynecological HistoryNo gynecological history recorded. Obstetrics History GPAL:G 0 P 0 0 0 0 Past Encounters Encounter ID Performer Location Encounter Start Date Encounter Closed Date Diagnosis/Indication Diagnosis SNOMED-CT Code Diagnosis ICD10 Code Diagnosis Note [id number] MAGAN Andrade [facility] [address] [address] [place] [address] 05/20/2023 08:25:43 05/20/2023 10:37:27 Obesity 776493400 E66.9 Weight loss surgery options discussed at length with patient today. We discussed sleeve versus BPD/duoden al switch/ MARIELY-S. I feel like the best surgery option for this patient is BPD/duoden al switch/ MARIELY-S given current BMI and comorbidit iesThe patient will be scheduled for the following. Initial intake lab work, cardiac clearance, and EGD. All risks complicati ons and alternativ es of the upper endoscopy were discussed with the patient and agreed upon. 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 2 reports limited control over ability to stop eating [id number] CELY CANDELARIA RDN, SHARIFA [facility] [address] [facility] [address], [place] [address] 06/07/2023 14:01:12 06/07/2023 14:17:52 Morbid obesity 616781966 E66.01 BMI = 47.5; encouraged pt to continue choosing healthier food choices as recommende d in the WLS manual Overeating 44848005 R63. 2 reports limited control over ability to stop eating; RDN continues to recommend attending an ED support group meeting virtually to provide support with this prior to surgery. RDN resent this resource via email to pt as requested today. Health Concerns Section Related Observation LastModified by Organization Detai ls LastModified Time None Recorded Concern Status LastModified by Organization Details LastModified Time None Recorded Advance Directives Directive None Recorded Payers Insurance Date Sequence Insurance Name Policy Number Policy Avina Covered Member ID Avina Member ID Guarantor Name 06/02/2023 2 [place] [id number] Lacey Suh [id number] Lacey Suh 06/02/2023 1 [place] [id number] Lacey Suh [id number] Lacey Suh Notes Date Note Type Note Provider Name and Address Organization Details Recorded Time 05/20/2023 text/html Patient presents today for the initial evaluation with an interest in bariatric surgery. Patients first choice for bariatric surgery is BPD/DS current BMI 47.5Patient reports occasional heartburn. She does not take any routine antacid medicine Pt has been overweight most of their life. Has been 100lbs or more over weight for __ years. Pt reports dyspnea joint pain and mobility issues related to excess weight. The pt is pursuing weight loss surgery because excess weight directly contributes to comorbidities including hypertension obstructive sleep apnea hypothyroidism Diets include calorie counting high protein/low carb diet. Pt site physical hunger and boredom as prompts to eat. Struggles with portion size. DIET HX:The patient states that they have been overweight since_The patient states that they have been 100 lbs or more overweight _ years.The patient started dieting at the age of _Dieting methods that have been most successful in losing weight are _The most weight ever lost on a single dieting attempt was _ and this was maintained until _The patient has attempted the following unsupervised diet attempts _The Patient has followed the following supervised diet attempts _The following OTC or prescribed medications have been utilized for weight loss_Behavior treatments for weight loss that have been attempted in the past were noneThe patient has utilized the following modes of exercise to help with weight loss _The patient has not use self induced behaviors to help them lose weight in the past.Currently the patient admits to an eating history of _.The patient feels that the majority of their meals are prepared _.Common triggers for causing the patient to overeat are _. MAGAN Andrade [address], [place], [address], [facility] & [place] 05/20/2023 10:27:38 05/21/2023 text/html RDN met w/ pt to complete initial nutritional assessment for intake of bariatric surgery. Pt is interested in MARIELY-S/DS. Height = 66 in. Weight = 294# (BMI = 47.5). Current Employment/Daily Activities: retired and works PRN Past weight loss attempts: MRs, [employer]-system, [employer] Hx of eating disorder: Denies; states she eats too much and too fast and struggles to control this. States she snacks through the night when working on items. PMH and meds list reviewed.Notes - Denies rx'd weight loss meds, herbal supplements or vitamins. Meal Pattern: no diet recall completed. Reports grazing, snacking in the evening, and large meals in one sitting. Drinks include sweet tea. Reports TID meals with snacks between, including peanuts. Frequency of eating out: brother brings take-out to her and reported eating pizza regularly Alcoholic consumption: Denies Smoking/Tobacco: Denies Exercise: was walking 3 mi/day but decreased since retired. Is trying to shoot a basketball at the gym occasionally. Recent changes: decreasing tea consumption and replacing with water; eating less fast food. States activity and mobility has improved recently with modest weight loss as a result of these changes. Motivation for surgery: pt states she wants to feel better Support after surgery: pt states her brother will be there to help her but he often brings her fast food since he also leads a busy life Goals for surgery: would like to lose at least 100# Additional Notes: states she is not much on tracking calories and protein Weigh-Ins Needed: not required CELY CANDELARIA RDN, LD [address] [facility], [place], [address], [facility] 05/21/2023 11:29:17 06/07/2023 text/html RDN called pt th is PM to discuss progress with eating pattern. Pt reports slight improvement with this and is limiting her late-night snacking. Pt states she is also choosing healthier options, such as apples/bananas and peanut butter or oranges and has switched to drinking propel flavored water.Pt reports decreased cravings for fast food at night despite continuing to work late on tasks. Pt has not yet taken advantage of the free eating disorder support group resource. Pt also is unsure if she has completed her psych evaluation yet. CELY CANDELARIA RDN, LD [address] [facility], [place], [address], [facility] & [place] 06/07/2023 14:17:44 OBGyn Episode No OBEpisode recorded.
== END 2024-12-12 23:59 | disposition home or self-care (01) ==
LOC: RAD 11:03
PROVIDERS: PCP Family Medicine; Visit Provider Family Medicine
DX: R74.8 Abnormal levels of other serum enzymes (principal); K80.80 Other cholelithiasis without obstruction
CPT/HCPCS: 76705